=== PATIENT | male | born 2005 | race Caucasian/White ===

== ENCOUNTER → 2025-02-13 | Outpatient (CLI) | payer BC, SELFPAY ==
[2025-02-13 09:53] LABS: Collection Type, Urine Clean Catch; Squamous Epithelial Cell,Urine 0 /hpf (0-5); WBC,Urine 0 /hpf (0-5)
[2025-02-13 10:23] LABS: Basophils # (Auto) 0.0 Thou/mm3 (0.0-0.2); Basophils % (Auto) 1 % (0-2.5); Eosinophils # (Auto) 0.1 Thou/mm3 (0.0-0.5); Eosinophils % (Auto) 3 % (0-10); Hematocrit 44.0 % (41.0-53.0); Hemoglobin 14.6 g/dL (13.5-16.0); Immature Granulocytes Auto 0.02 Thou/mm3 (0.00-0.00); Lymphocytes # (Auto) 1.6 Thou/mm3 (1.0-4.8); Lymphocytes % (Auto) 31 % (10-50); Mean Corpuscular HGB Conc 33.2 g/dl (31.0-37.0); Mean Corpuscular Hemoglobin 29.9 pg (25.0-35.0); Mean Corpuscular Volume 90 fL (80-100); Monocytes # (Auto) 0.4 Thou/mm3 (0.0-0.8); Monocytes % (Auto) 8 % (0-12); Neutrophils # (Auto) 2.9 Thou/mm3 (1.8-7.7); Neutrophils % (Auto) 58 % (37-80); Nucleated Red Blood Cell # 0.00 Thou/mm3 (0.00-0.00); Nucleated Red Blood Cell % 0 /100 WBC (0); Platelet Count 165 Thou/mm3 (140-440); RDW Standard Deviation 43.2 fL (35.1-43.9); Red Blood Count 4.89 Miln/mm3 (4.50-5.90); White Blood Count 5.1 Thou/mm3 (4.5-11.0)
[2025-02-13 10:32] LABS: Bilirubin,Urine Negative (Negative); Blood,Urine Negative (Negative); Clarity,Urine Clear (Clear/Hazy); Color,Urine Lt-Yellow (Lt Yel-Yel); Glucose, Urine Negative (Negative); Ketones,Urine Negative (Negative); Leukocyte Esterase,Urine Negative (Negative); Nitrite,Urine Negative (Negative); PH,Urine 6.5 (5.0-7.0); Protein,Urine Negative (Neg - Trace); RBC,Urine 1 /hpf (0-3); Specific Gravity,Urine 1.026 (1.001-1.035); Urobilinogen,Urine Negative mg/dL (0.0-1.0)
[2025-02-13 10:34] LABS: Glucose Estimated Average 114 mg/dL (80-131); Hemoglobin A1C 5.6 % Hgb (4.8-6.0)
[2025-02-13 10:38] LABS: Alanine Aminotransferase 15 U/L (10-49); Albumin, Serum 4.6 gm/dL (3.5-5.0); Albumin/Globulin Ratio 2.4 (1.2-2.2); Alkaline Phosphatase 93 U/L (46-116); Anion Gap 7 (7-16); Aspartate Amino Transferase 21 U/L (0-34); BUN/Creatinine Ratio 21 Ratio (12-20); Bilirubin,Total 0.4 mg/dL (0.3-1.2); Blood Urea Nitrogen 17 mg/dL (9-23); Calcium 9.8 mg/dL (8.3-10.6); Calcium (Corrected) 9.8 mg/dL (8.5-10.1); Carbon Dioxide 28.6 mMol/L (20.0-31.0); Cardiac Risk Estimate 3.1 RATIO (4.0-6.7); Chloride 105 mMol/L (98-107); Cholesterol 165 mg/dL (132-200); Creatinine (Component) 0.8 mg/dL (0.6-1.3); Globulin 1.9 gm/dL (2.3-3.5); Glucose 98 mg/dL (74-106); HDL Cholesterol 53 mg/dL (40-60); LDL Cholesterol,Calculated 91 mg/dL (0-130); Osmolality,Calculated 282 (275-295); Potassium 4.7 mMol/L (3.4-5.1); Sodium 141 mMol/L (136-145); Total Protein 6.5 gm/dL (5.7-8.2); Triglycerides 103 mg/dL (30-150); eGFR > 60 See Note
== END | disposition home or self-care (01) ==
LOC: COPL 09:23
PROVIDERS: PCP Family Medicine; Referring Provider Family Medicine; Visit Provider Family Medicine
DX: Z00.00 Encounter for general adult medical examination without abnormal findings (principal)
CPT/HCPCS: 36415; 80053; 80061; 81001; 83036; 85025